=== PATIENT | male | born 1955 | race Caucasian/White ===

== ENCOUNTER 2023-09-29 16:30 | Inpatient (IN) | payer MEDICAID ==
[2023-09-29] VITALS (14 sets, daily range): BP systolic 115–136; BP diastolic 58–110; PULSE 55–75; RESP 12–19; TEMP 97–98.6
[~2023-09-29] VITALS: Ht 180.3 cm; Wt 92.1 kg
[2023-09-29] MEDS: MORPHINE SULFATE 4 MG/ML INJ (FOR IV/IM USE) IV STA (16:45)
[2023-09-29] MEDS: HEPARIN 5000 UNITS/ML VIAL IV ONE (16:46)
[2023-09-29] MEDS: ONDANSETRON HCL 4MG/2ML INJ IV STA (16:46)
[2023-09-29] MEDS: SODIUM CHLORIDE 0.9% 1,000 ML IV ONE ×2 (16:46→18:56)
[2023-09-29 16:47] LABS: BASOPHILS % 0.3 % (0.0-2.0); EOSINOPHILS % 0.9 % (0.0-5.0); HEMATOCRIT. 35.7 % (42.0-52.0); HEMOGLOBIN. 11.8 g/dL (14.0-18.0); LYMPHOCYTES % 21.6 % (20.0-50.0); MEAN CORPUSCULAR HEMOGLOBIN 30.1 pg (28.0-32.0); MEAN CORPUSCULAR HGB CONC 32.9 g/dL (31.0-37.0); MEAN CORPUSCULAR VOLUME 91.4 fL (80.0-94.0); MEAN PLATELET VOLUME 7.9 fl (7.4-10.4); MONOCYTES % 6.2 % (2.0-8.0); PLATELET 269 x1000/uL (130-400); RED BLOOD CELL COUNT 3.91 mill/uL (4.7-6.1); RED CELL DISTRIBUTION WIDTH 13.8 % (11.6-14.6); WHITE BLOOD COUNT 10.8 x1000/uL (4.5-11.0)
[2023-09-29] MEDS ORDERED: NOREPINEPHRINE 8MG/250ML PMX 250 ML IV ONE (16:47)
[2023-09-29] MEDS: PIPERACILLIN/TAZO 3.375G/50ML 50 ML IV STA (16:57)
[2023-09-29] MEDS ORDERED: VANCOMYCIN 1G PREMIX 200 ML IV SCH (17:00)
[2023-09-29] MEDS: NOREPINEPHRINE 8 MG in DEXT 5% WATER 242 ML IV STA (17:03)
[2023-09-29] MEDS: NOREPINEPHRINE 8MG/250ML PMX 250 ML IV ONE (17:04)
[2023-09-29] MEDS: TICAGRELOR 90 MG TABLET PO ONE (17:06)
[2023-09-29] MEDS: SODIUM CHLORIDE 0.9% 1000ML BAG (SEPSIS BOLUS) IV ONE (17:06)
[2023-09-29] MEDS ORDERED: HEPARIN 1000 UNITS/ML 10ML ONE (17:08)
[2023-09-29] MEDS ORDERED: IODIXANOL 320MG/ML 100 ML BOTTLE IV ONE ×2 (17:09→17:47)
[2023-09-29] MEDS ORDERED: LIDOCAINE HCL 1% 20ML VIAL (Pyxis) INJ ONE ×2 (17:09→17:14)
[2023-09-29] MEDS ORDERED: FENTANYL CITRATE/PF 50MCG/ML 2ML VIAL ONE (17:17)
[2023-09-29] MEDS ORDERED: MIDAZOLAM HCL 2 MG/2 ML VIAL ONE (17:17)
[2023-09-29] MEDS ORDERED: ATROPINE SULFATE 1MG/10ML SYR ONE (17:21)
[2023-09-29 17:36] LABS: ALANINE AMINOTRANSFERASE 13 IU/L (10-49); ALBUMIN 4.2 g/dL (3.2-4.8); ASPARTATE AMINOTRANSFERASE 24 IU/L (<34); BILIRUBIN TOTAL 0.6 mg/dL (0.1-1.0); CALCIUM 8.6 mg/dL (8.7-10.4); CARBON DIOXIDE 16 mEq/L (21-32); CHLORIDE 104 mEq/L (98-107); CREATININE 2.7 mg/dL (0.6-1.3); GLUCOSE 240 mg/dL (70-105); POTASSIUM 4.4 mEq/L (3.5-5.1); PROTEIN TOTAL 6.5 g/dL (6.0-8.3); SODIUM 137 mEq/L (136-145); TROPONIN I HIGH SENSITIVITY 11 ng/L (3.0-53); UREA NITROGEN BLOOD 21 mg/dL (9-23)
[2023-09-29 17:38] LABS: LACTIC ACID 6.5 mmol/L (0.4-2.0)
[2023-09-29] MEDS ORDERED: ONDANSETRON HCL 4MG/2ML INJ ONE (18:35)
[2023-09-29] MEDS ORDERED: NITROGLYCERIN 0.4MG TABLET SL SL PRN (18:45)
[2023-09-29] MEDS ORDERED: ACETAMINOPHEN 325MG TABLET PO PRN (18:45)
[2023-09-29] MEDS: ONDANSETRON HCL 4MG/2ML INJ IV PRN (21:00)
[2023-09-29] MEDS: ATORVASTATIN CALCIUM 40MG TABLET PO SCH (21:41)
[2023-09-29] MEDS: TICAGRELOR 90 MG TABLET PO SCH (21:41)
[2023-09-29] MEDS: PANTOPRAZOLE SODIUM 40 MG/VIAL IV SCH (21:41)
[2023-09-29 21:43] LABS: TROPONIN I HIGH SENSITIVITY 1184 ng/L (3.0-53)
[2023-09-30] VITALS (41 sets, daily range): BP systolic 100–164; BP diastolic 57–96; PULSE 64–93; RESP 7–25; TEMP 97.4–98.7
[2023-09-30] MEDS: ASPIRIN 81MG TABLET PO SCH (10:00)
[2023-09-30 11:02] LABS: CALCIUM 8.4 mg/dL (8.7-10.4); POTASSIUM 3.5 mEq/L (3.5-5.1)
[2023-09-30 11:06] LABS: CREATININE 1.6 mg/dL (0.6-1.3)
[2023-09-30] MEDS ORDERED: DEXTROSE 50% WATER 50ML SYRINGE IV PRN (11:15)
[2023-09-30] MEDS: AMLODIPINE 10MG TABLET PO SCH (11:53)
[2023-09-30] MEDS: BLOOD SUGAR DIAGNOSTIC STRIP TEST SCH (12:50)
[2023-09-30] MEDS: INSULIN LISPRO 100 UNITS/ML SUBCUT SCH (13:20)
[2023-09-30 14:13] LABS: CLARITY URINE CLEAR (CLEAR); COLOR URINE YELLOW (YELLOW); GLUCOSE URINE NEGATIVE (NEGATIVE); KETONES URINE NEGATIVE (NEGATIVE); LEUKOCYTE ESTERASE URINE NEGATIVE (NEGATIVE); NITRITE URINE NEGATIVE (NEGATIVE); OCCULT BLOOD URINE NEGATIVE (NEGATIVE); PH URINE 5.5 (4.5-8.0); PROTEIN URINE NEGATIVE (NEGATIVE); SPECIFIC GRAVITY URINE 1.009 (1.005-1.030); UROBILINOGEN URINE 0.2 E.U./dL (0.2-1.0)
[2023-09-30] MEDS: SODIUM CHLORIDE 0.9% 1,000 ML IV SCH (15:06)
[2023-10-01 00:02] VITALS: BP 137/79; PULSE 76; RESP 22; TEMP 98.6
[2023-10-01 04:00] VITALS: BP 124/71; PULSE 68; RESP 22; TEMP 97.6
[2023-10-01 07:55] LABS: ALANINE AMINOTRANSFERASE 77 IU/L (10-49); ALBUMIN 4.2 g/dL (3.2-4.8); ASPARTATE AMINOTRANSFERASE 54 IU/L (<34); BILIRUBIN TOTAL 0.7 mg/dL (0.1-1.0); CALCIUM 8.5 mg/dL (8.7-10.4); CARBON DIOXIDE 21 mEq/L (21-32); CHLORIDE 111 mEq/L (98-107); CREATINE KINASE 357 IU/L (46-171); CREATININE 1.6 mg/dL (0.6-1.3); GLUCOSE 96 mg/dL (70-105); PHOSPHORUS 2.4 mg/dL (2.5-4.9); POTASSIUM 3.8 mEq/L (3.5-5.1); PROTEIN TOTAL 6.7 g/dL (6.0-8.3); SODIUM 138 mEq/L (136-145); UREA NITROGEN BLOOD 16 mg/dL (9-23)
[2023-10-01 08:00] VITALS: BP 130/68; PULSE 73; RESP 15; TEMP 98
[2023-10-01 08:02] LABS: BASOPHILS % 0.2 % (0.0-2.0); EOSINOPHILS % 1.6 % (0.0-5.0); HEMATOCRIT. 32.3 % (42.0-52.0); HEMOGLOBIN. 10.9 g/dL (14.0-18.0); LYMPHOCYTES % 17.4 % (20.0-50.0); MEAN CORPUSCULAR HEMOGLOBIN 30.7 pg (28.0-32.0); MEAN CORPUSCULAR HGB CONC 33.8 g/dL (31.0-37.0); MEAN CORPUSCULAR VOLUME 90.8 fL (80.0-94.0); MEAN PLATELET VOLUME 7.9 fl (7.4-10.4); NEUTROPHILS % 72.8 % (40.0-76.0); PLATELET 241 x1000/uL (130-400); RED BLOOD CELL COUNT 3.56 mill/uL (4.7-6.1); RED CELL DISTRIBUTION WIDTH 14.1 % (11.6-14.6); WHITE BLOOD COUNT 5.9 x1000/uL (4.5-11.0)
[2023-10-01 12:00] VITALS: BP 136/72; PULSE 77; RESP 13; TEMP 98.2
[2023-10-01] MEDS: POLYETHYLENE GLYCOL 3350 (17GM) 1 DOSE PACK PO NR (13:17)
[2023-10-01 16:00] VITALS: BP 143/81; PULSE 76; RESP 20; TEMP 98.6
[2023-10-01 20:13] VITALS: BP 149/77; PULSE 70; RESP 15; TEMP 97.6
[2023-10-02] VITALS: BP 129/85; PULSE 70; RESP 0; TEMP 98.6
[2023-10-02 04:00] VITALS: BP 131/81; PULSE 71; RESP 15; TEMP 98.2
[2023-10-02 07:01] LABS: BASOPHILS % 0.2 % (0.0-2.0); EOSINOPHILS % 2.6 % (0.0-5.0); HEMATOCRIT. 33.5 % (42.0-52.0); HEMOGLOBIN. 11.6 g/dL (14.0-18.0); LYMPHOCYTES % 18.1 % (20.0-50.0); MEAN CORPUSCULAR HEMOGLOBIN 30.6 pg (28.0-32.0); MEAN CORPUSCULAR HGB CONC 34.5 g/dL (31.0-37.0); MEAN CORPUSCULAR VOLUME 88.6 fL (80.0-94.0); MEAN PLATELET VOLUME 7.9 fl (7.4-10.4); MONOCYTES % 9.1 % (2.0-8.0); PLATELET 235 x1000/uL (130-400); RED BLOOD CELL COUNT 3.78 mill/uL (4.7-6.1); RED CELL DISTRIBUTION WIDTH 13.6 % (11.6-14.6); WHITE BLOOD COUNT 5.3 x1000/uL (4.5-11.0)
[2023-10-02 07:09] LABS: CALCIUM 8.6 mg/dL (8.7-10.4); CARBON DIOXIDE 24 mEq/L (21-32); CHLORIDE 108 mEq/L (98-107); CREATININE 1.4 mg/dL (0.6-1.3); GLUCOSE 95 mg/dL (70-105); PHOSPHORUS 2.8 mg/dL (2.5-4.9); POTASSIUM 3.8 mEq/L (3.5-5.1); SODIUM 140 mEq/L (136-145); UREA NITROGEN BLOOD 14 mg/dL (9-23)
[2023-10-02 08:00] VITALS: BP_SYST 131; BP_SYST 148; BP_DIAS 78; BP_DIAS 81; PULSE 76; RESP 20; TEMP 98.6
[2023-10-02] MEDS: FAMOTIDINE 20MG TABLET PO SCH (08:32)
[2023-10-02] MEDS ORDERED: FAMOTIDINE 20MG/2ML VIAL IV SCH (09:00)
[2023-10-02] MEDS ORDERED: MIDAZOLAM HCL 2 MG/2 ML VIAL ONE (09:05)
[2023-10-02] MEDS ORDERED: LIDOCAINE HCL 1% 20ML VIAL (Pyxis) INJ ONE (09:05)
[2023-10-02] MEDS ORDERED: DIPHENHYDRAMINE 50MG/ML VIAL ONE (09:05)
[2023-10-02] MEDS ORDERED: FENTANYL CITRATE/PF 50MCG/ML 2ML VIAL ONE (09:05)
[2023-10-02] MEDS ORDERED: VERAPAMIL HCL 2.5 MG/1 ML 2ML VIAL IV ONE (09:05)
[2023-10-02] MEDS ORDERED: IODIXANOL 320MG/ML 100 ML BOTTLE IV ONE ×2 (09:06→10:10)
[2023-10-02] MEDS ORDERED: HEPARIN 1000 UNITS/ML 10ML ONE (09:06)
[2023-10-02] MEDS ORDERED: NOREPINEPHRINE 8MG/250ML PMX 250 ML IV ONE (09:58)
[2023-10-02] MEDS ORDERED: ONDANSETRON HCL 4MG/2ML INJ ONE (10:00)
[2023-10-02] MEDS ORDERED: ASPIRIN 81MG TABLET ONE (10:36)
[2023-10-02] MEDS ORDERED: TICAGRELOR 90 MG TABLET PO ONE (10:36)
[2023-10-02] MEDS ORDERED: ACETAMINOPHEN 325MG TABLET PO PRN (11:15)
[2023-10-02] MEDS: SODIUM CHLORIDE 0.45% 500 ML IV ONE (11:15)
[2023-10-02] MEDS ORDERED: ATROPINE SULFATE 1MG/10ML SYR IV PRN (11:15)
[2023-10-02 12:00] VITALS: BP 131/81; PULSE 68; RESP 16; TEMP 98.2
[2023-10-02] MEDS: HYDRALAZINE 20MG/ML VIAL IV NR (14:47)
[2023-10-02 16:00] VITALS: BP 137/85; PULSE 91; RESP 12; TEMP 98.5
[2023-10-02 20:05] VITALS: BP 148/78; PULSE 84; RESP 24; TEMP 97.3
[2023-10-02] MEDS: TRAMADOL 50MG TABLET PO PRN (23:16)
[2023-10-03 00:05] VITALS: BP 133/88; PULSE 77; RESP 22; TEMP 97.2
[2023-10-03 04:05] VITALS: BP 141/76; PULSE 74; RESP 12; TEMP 97.6
[2023-10-03 07:36] LABS: BASOPHILS % 0.1 % (0.0-2.0); EOSINOPHILS % 2.8 % (0.0-5.0); HEMATOCRIT. 35.2 % (42.0-52.0); HEMOGLOBIN. 11.9 g/dL (14.0-18.0); LYMPHOCYTES % 17.8 % (20.0-50.0); MEAN CORPUSCULAR HEMOGLOBIN 30.1 pg (28.0-32.0); MEAN CORPUSCULAR HGB CONC 33.7 g/dL (31.0-37.0); MEAN CORPUSCULAR VOLUME 89.3 fL (80.0-94.0); MEAN PLATELET VOLUME 7.7 fl (7.4-10.4); MONOCYTES % 9.1 % (2.0-8.0); NEUTROPHILS % 70.2 % (40.0-76.0); PLATELET 258 x1000/uL (130-400); RED BLOOD CELL COUNT 3.94 mill/uL (4.7-6.1); RED CELL DISTRIBUTION WIDTH 13.8 % (11.6-14.6); WHITE BLOOD COUNT 6.7 x1000/uL (4.5-11.0)
[2023-10-03 08:00] VITALS: BP 141/78; PULSE 64; RESP 11; TEMP 97.8
[2023-10-03 08:05] LABS: CARBON DIOXIDE 24 mEq/L (21-32); CHLORIDE 106 mEq/L (98-107); CREATININE 1.6 mg/dL (0.6-1.3); GLUCOSE 97 mg/dL (70-105); PHOSPHORUS 2.8 mg/dL (2.5-4.9); SODIUM 137 mEq/L (136-145); UREA NITROGEN BLOOD 20 mg/dL (9-23)
[2023-10-03] MEDS ORDERED: AMLO10TA80 PO (10:28)
[2023-10-03] MEDS ORDERED: LIP40 PO (10:28)
[2023-10-03] MEDS ORDERED: ASPI-1160 PO (10:28)
[2023-10-03] MEDS ORDERED: TICA90TA PO (10:28)
[2023-10-03 12:00] VITALS: BP 142/81; PULSE 79; RESP 12; TEMP 97.5
[2023-10-03 16:00] VITALS: BP 136/90; PULSE 79; RESP 14; TEMP 97.9
[2023-10-03] MEDS: LACTULOSE 20G/30ML UDC PO NR (16:37)
[2023-10-03 20:00] VITALS: BP 150/90; PULSE 97; RESP 15; TEMP 97.1
[2023-10-03] MEDS: BISACODYL 10MG SUPP PR ONE (20:00)
[2023-10-03] MEDS: SENNOSIDES 8.6MG TABLET PO SCH (21:00)
[2023-10-04] VITALS: BP 103/63; PULSE 89; RESP 13; TEMP 97.7
[2023-10-04 04:00] VITALS: BP 105/73; PULSE 89; RESP 19; TEMP 97.3
[2023-10-04 08:00] VITALS: BP 137/81; PULSE 83; RESP 13; TEMP 98.3
[2023-10-04] MEDS: INFLUENZA VACCINE 05/PF 0.5 ML SYRINGE IM ONE (11:13)
[2023-10-04] MEDS: PNEUMOCOCCAL 23-VAL P-SAC VAC 0.5 ML IM ONE (11:17)
[2023-10-04 11:25] VITALS: BP 137/81; PULSE 83; TEMP 98.3; O2SAT 98
[2023-10-04 11:42] VITALS: BP 130/90; PULSE 92; RESP 17; TEMP 98.2
== END 2023-10-04 12:12 | disposition home or self-care (01) | DRG 174 ==
LOC: ER 16:30 → EDBEDREQTM 17:31 → EDBEDREQ 17:31 → CVICU 18:28 → 3WST 09-30 16:58
PROVIDERS: ADMIT Internal Medicine; ATTEND Internal Medicine
PROC: 027034Z Dilation of Coronary Artery, One Artery with Drug-eluting Intraluminal Device, Percutaneous Approach (ICD-10-PCS; 2023-10-01)
PROC: 4A023N7 Measurement of Cardiac Sampling and Pressure, Left Heart, Percutaneous Approach (ICD-10-PCS; 2023-10-01)
PROC: B2111ZZ Fluoroscopy of Multiple Coronary Arteries using Low Osmolar Contrast (ICD-10-PCS; 2023-10-01)
PROC: 027034Z Dilation of Coronary Artery, One Artery with Drug-eluting Intraluminal Device, Percutaneous Approach (ICD-10-PCS; principal; 2023-10-02)
PROC: 4A023N7 Measurement of Cardiac Sampling and Pressure, Left Heart, Percutaneous Approach (ICD-10-PCS; 2023-10-02)
PROC: B211YZZ Fluoroscopy of Multiple Coronary Arteries using Other Contrast (ICD-10-PCS; 2023-10-02)
DX: I21.19 ST elevation (STEMI) myocardial infarction involving other coronary artery of inferior wall (principal); N17.9 Acute kidney failure, unspecified; E87.20 Acidosis, unspecified; R65.10 Systemic inflammatory response syndrome (SIRS) of non-infectious origin without acute organ dysfunction; I95.9 Hypotension, unspecified; D64.9 Anemia, unspecified; E11.65 Type 2 diabetes mellitus with hyperglycemia; E78.5 Hyperlipidemia, unspecified; I10 Essential (primary) hypertension; I25.10 Atherosclerotic heart disease of native coronary artery without angina pectoris; R00.1 Bradycardia, unspecified; Z82.49 Family history of ischemic heart disease and other diseases of the circulatory system; Z83.3 Family history of diabetes mellitus; Z95.5 Presence of coronary angioplasty implant and graft
CPT/HCPCS: 36415; 71045; 76770; 80048; 80053; 81003; 82550; 82962; 83036; 83605; 83735; 83880; 84100; 84484; 85025; 85347; 86850; 86900; 90686; 90732; 92928; 92941; 93005; 93306; 93458; 93922; 99291; C1725; C1760; C1769; C1874; C1887; C1893; C1894; C9113; J0360; J0461; J1200; J1644; J2250; J2270; J2405; J2543; J3010; J3490; J7030; J7060; Q9967; J8499